=== PATIENT | male | born 1990 | race Caucasian/White ===

== ENCOUNTER 2021-04-01 17:22 | Emergency (ER) | payer OTHER, SELFPAY ==
--- NOTE | ~2021-04-01 | XR_ITS ---
EXAMINATION: XR HAND, LEFT CLINICAL INFORMATION: Laceration COMPARISON: None TECHNIQUE: PA, lateral, and oblique views of the left hand. FINDINGS: The bones are normal. No fracture. Alignment is anatomic. Joint spaces are maintained. No erosions or soft tissue calcifications. No radiopaque foreign body identified. Mild soft tissue swelling adjacent to this (metacarpal. XR/XR hand LT min 3V IMPRESSION: Mild soft tissue swelling adjacent to the fifth metacarpal.
[2021-04-01 19:31] VITALS: BP 142/73; PULSE 100; RESP 15; TEMP 37; O2SAT 100; BMI 25.0
[2021-04-01] MEDS: Diphth,Pertus(ACell),Tet Adult 0.5 ML SYRINGE IM (19:44)
[2021-04-01] MEDS: Lidocaine HCl 2 % 20 ML VIAL 10 ML SUBCUT (19:45)
--- NOTE | 2021-04-01 19:48 | ED.WOUNDLAC ---
HPI - Wound/Laceration General Chief Complaint: Wound/Laceration Stated Complaint: Hand lac Time Seen by Provider: 04/01/21 18:27 Source: patient Mode of arrival: ambulatory Limitations: no limitations History of Present Illness HPI narrative: 30-year-old male presenting to the ED with complaints of a laceration to his left hand from a razor blade prior to arrival. He reports he was at work although does not want to do a workman's comp injury complaint. He reports he used soap and water to clean the wound prior to arrival. He reports that he is not up-to-date on tetanus. He denies any thoughts of foreign bodies or any other symptoms complaints or concerns or injuries at this time. Onset (ago): minute(s) (Prior to arrival) Extremity Location: left: hand Place: work Patient tetanus UTD: No Context: accidental Associated symptoms: none Treatments prior to arrival: splint Related Data Previous Rx's Medication Instructions Recorded cephalexin 500 mg capsule 500 mg PO Q6H 10 Days #40 cap 04/01/21 Allergies Allergy/AdvReac Type Severity Reaction Status Date / Time pollen extracts [POLLEN] Allergy Unknown UNKNOWN Verified 04/01/21 19:53 Review of Systems Review of Systems: Constitutional : No Fever, No Chills, Cardiovascular : No Chest Pain, No SOB Respiratory : No Dyspnea Gastrointestinal : No abdominal pain Musculoskeletal : No Joint Swelling Skin : positive skin laceration, No Foreign bodies, No rash, No surrounding erythema Neuro : No Weakness, No Numbness/tingling Psych : No SI/HI/thoughts of self injury Yes all other systems are reviewed and are negative PMFSH Past Medical History Attestation statement: The following information was validated with the patient. Medical History No known health problems Surgical History No history of previous surgery Social History Social History Patient Tobacco Use Status: Never used Tobacco Use of substances other than those prescribed or required for medical reasons: Yes Substance Use Type: Marijuana Advance Directives: No Advance Directives Information Provided: Yes Physical Exam Vital Signs: Vital Signs: Last Vital Signs Temp 98.6 F 04/01/21 19:31 Pulse 100 04/01/21 19:31 Resp 15 04/01/21 19:31 BP 142/73 H 04/01/21 19:31 Pulse Ox 100 04/01/21 19:31 Body Mass Index 25.0 vital signs have been reviewed as normal and appeared to be correct. Blood pressure hypertensive at 142/73. Heart rate normal. Respiration rate normal. Temperature normal. Oxygen saturation normal. Appearance: Alert. Oriented X3. No acute distress. Head: Normal external exam. Normocephalic. Atraumatic. Eyes: PERRLA. EOMI. Conjunctiva and sclera normal. Eyelids normal. ENT: Pharynx normal. Uvula midline. Moist mucous membranes. Neck: Normal inspection. Neck supple. FROM. CVS: Normal heart rate and rhythm. Respiratory: No respiratory distress. Painless inspiration. Skin: Skin warm and dry. Normal skin color. Normal skin turgor. No additional rashes/lesions/lacerations noted. Extremities: To left hand palmar aspect patient noted to have of 2 cm intermediate laceration. No foreign bodies noted. No obvious ligamentous or tendon injury. No bony tenderness is noted. Otherwise all other Extremities exhibit normal range of motion and nontender. Neuro: Oriented X 3. No motor deficit. No sensory deficit. Reflexes normal. Normal steady gait. No focal neuro deficits noted. Vascular: + radial pulses/+ 2 distal pedal pulses/+2 dorsalis pedis b/l. Normal cap refill. No cyanosis noted to upper extremity nails and lower extremity toes nails. Course Course Course Narrative: Patient is now status post laceration repair with [address] Patient tolerated procedure well. No complications. Tetanus updated at this time. X-ray revealed mild soft tissue swelling otherwise no acute processes are noted. Will DC home with instructions return in 10 days for suture removal and to return if any new or worsening symptoms sooner and to follow up with primary care provider. Patient understands agrees with this plan. MDM - Wound/Laceration Medical Records Attestation: I reviewed the patient's medical records. Imaging Data Left hand x-ray: Attestation: I personally reviewed and interpreted this imaging study as follows: Radiologist's impression: FINDINGS: The bones are normal. No fracture. Alignment is anatomic. Joint spaces are maintained. No erosions or soft tissue calcifications. No radiopaque foreign body identified. Mild soft tissue swelling adjacent to this (metacarpal. XR/XR hand LT min 3V IMPRESSION: Mild soft tissue swelling adjacent to the fifth metacarpal. Procedures Laceration Laceration 1: Site: hand Side (If applicable): left Size (cm): 2 Description: linear Depth: simple, single layer Local Anesthetic: lidocaine 2% Amount of anesthesia used (mL): 5 Pre-repair: wound explored, irrigated extensively and deep structures intact Skin layer closed with: nylon Size (cm): 5-0 Number of sutures: 5 Technique: simple, interrupted Discharge Plan Discharge Clinical Impression: Laceration Patient Disposition: Home, Self-Care Instructions: Laceration (ED) Prescriptions: New cephalexin 500 mg capsule 500 mg PO Q6H 10 Days Qty: 40 RF: 0 Referrals: Emelyn Reeves PA [Emergency Midlevel Provider] - 10 days (For suture removal) Print Language: Divehi
== END 2021-04-01 19:58 | disposition home or self-care (01) ==
PROVIDERS: Emergency Provider Emergency Medicine
DX: S61.412A Laceration without foreign body of left hand, initial encounter (principal); S60.512A Abrasion of left hand, initial encounter; M79.642 Pain in left hand; W26.8XXA Contact with other sharp object(s), not elsewhere classified, initial encounter; Y93.9 Activity, unspecified; Y92.9 Unspecified place or not applicable; Y99.9 Unspecified external cause status
CPT/HCPCS: 12001; 73130; 90471; 90715; 99284

== ENCOUNTER 2025-03-10 08:32 | Emergency (ER) | payer OTHER, SELFPAY ==
--- NOTE | ~2025-03-10 | XR_ITS ---
EXAMINATION: XR RIBS, RIGHT CLINICAL INFORMATION: pain COMPARISON: None available. TECHNIQUE: PA view of the chest, and 3 views of the right ribs were obtained. FINDINGS: Lungs are clear. No consolidation, pneumothorax, or pleural effusion. The cardiomediastinal silhouette and pulmonary vasculature are normal. Osseous structures are unremarkable. Ribs are intact. No fractures are identified. XR/XR ribs RT min 3V w CXR1V IMPRESSION: Normal examination. No active pulmonary disease. No definite rib fracture or focal rib abnormality. Electronically signed by: Abran Navarro MD 03/10/2025 09:17 AM EDT
[2025-03-10 08:33] VITALS: BP 146/68; PULSE 69; RESP 18; TEMP 36.6; O2SAT 98; BMI 25.8
--- NOTE | 2025-03-10 08:47 | ED.BACK ---
HPI - Back Pain/Injury General Chief Complaint: Back Pain/Injury Stated Complaint: Sharp pain R side/back Time Seen by Provider: 03/10/25 08:46 Source: patient and old records reviewed Mode of arrival: ambulatory Limitations: no limitations History of Present Illness ED Provider: LETI TERRY Narrative: 34 yo male with no PMH does have some mass that is benign R side ribs from MRI in past with [facility]. He was doing heavy lifting at work yesterday and felt a little tight but nothing severe. He notes this AM he has much more severe pain on the right rib area that brought him to his knees. No fevers, cough, no recent travel or procedures. No rash noted. No hx of renal colic and no hx of VTE. He denies numbness, weakness, saddle anesthesia, incontinence, no IVDA. MD elicited complaint: back pain and back injury Pertinent past history: prior back pain Onset (ago): day(s) (1) Timing: progressively worsening Severity: severe Similar Symptoms Previously: No Quality: sharp Location: right upper back Radiation: none Exacerbating factors: movement Relieving factors: none Context: while lifting Associated symptoms: denies other symptoms Work related injury: Yes Related Data Previous Rx's ?Medication ?Instructions ?Recorded cephalexin 500 mg capsule 500 mg PO Q6H 10 days #40 caps 04/01/21 cyclobenzaprine 10 mg tablet 10 mg PO TID PRN muscle spasm #20 03/10/25 tabs ketorolac 10 mg tablet 10 mg PO TID PRN pain 5 days #15 03/10/25 tabs Allergies Allergy/AdvReac Type Severity Reaction Status Date / Time pollen extracts (POLLEN) Allergy Unknown UNKNOWN Verified 03/10/25 08:37 Review of Systems Review of Systems: Constitutional : No Weight loss, No Fever, No Chills, ENT/Mouth : No Hearing loss, No Ear Pain, No Nasal Congestion, No Sinus Pain, No Hoarseness, No sore throat, No Rhinorrhea, No Swallowing Difficulty Cardiovascular : No Chest Pain, No SOB Respiratory : No Cough, No Dyspnea Gastrointestinal : No Nausea, No Vomiting, No Diarrhea, No abdominal Pain, No Hematochezia, No Melena Genitourinary : No Dysuria, No Urinary Frequency, No Hematuria, No Urinary Incontinence, Musculoskeletal : positive back pain Skin : No Skin Lesions, No rash Neuro : No Weakness, No Numbness, No Paresthesias, no loss of bowel or bladder incontinence, no saddle anesthesia Yes all other systems are reviewed and are negative [facility] Past Medical History Attestation statement: The following information was validated with the patient. Source: old records reviewed Medical History No known health problems Surgical History No history of previous surgery Social History Social History Patient Tobacco Use Status: Never used Tobacco Substance Use Type: Marijuana Advance Directives: No Advance Directives Information Provided: No Do you have a plan to hurt others: No Plan Physical Exam Vital Signs: Vital Signs: Last Vital Signs Temp 98 F 03/10/25 08:33 Pulse 69 03/10/25 08:33 Resp 18 03/10/25 08:33 BP 146/68 H 03/10/25 08:33 Pulse Ox 98 03/10/25 08:33 O2 Del Method Room Air 03/10/25 08:33 BMI result Body Mass Index 25.8 Appearance: Alert. Oriented X3. No acute distress. Eyes: Pupils equal, round and reactive to light. ENT: Pharynx normal. Neck: Normal inspection. Neck supple. CVS: Normal heart rate and rhythm. Pulses normal. Respiratory: No respiratory distress. Breath sounds normal. Abdomen: Soft and nontender. Back: mild ttp R posterior ribs and thoracic area Skin: Skin warm and dry. Normal skin color. Normal skin turgor. Extremities: No lower extremity edema. distal pulses in both legs intact Neuro: Oriented X 3. No motor deficit. No sensory deficit. CN2-12 intact Medications Administered Discontinued Medications Generic Name Dose Route Start Last Admin Trade Name Freq PRN Reason Stop Dose Admin Diazepam 5 mg 03/10/25 08:57 03/10/25 09:20 Diazepam 5 Mg Tablet PO 03/10/25 08:58 5 mg ONCE ONE Administration Ketorolac Tromethamine 30 mg 03/10/25 08:57 03/10/25 09:19 Ketorolac Tromethamine 30 Mg/Ml Vial IM 03/10/25 08:58 30 mg ONCE ONE Administration Medical Decision Making Medical Decision Making MDM Narrative: 34 yo male with prior back pain here with R sided thoracic pain but no infectious symptoms, PERC negative, no hx of renal colic - it is worse with movements at this time will obtain xray for PTX/rib fracture, UA for hematuria for possible renal colic. Will provide IM toradol and valium. Differential Diagnosis Differential Diagnoses: The differential diagnosis associated with the presentation includes renal colic, muscle spasm, rib contusion, rib fx PERC negative doubt VTE Admission/Observation Consideration of admission/observation: Escalation of care including admission/observation considered feels better stable for DC Lab Data MDM Lab Attestation statement: I reviewed the patient's lab results. Labs: Lab Results 03/10/25 Range/Units 09:57 Urine Color Yellow Urine Appearance Clear Urine pH 5.5 (5.0-9.0) Ur Specific [place] 1.020 (1.005-1.025) Urine Protein Negative (Neg-Trace) mg/dL Urine Glucose (UA) Negative (Negative) mg/dL Urine Ketones Negative (Negative) mg/dL Urine Blood Negative (Negative) Urine Nitrite Negative (Negative) Ur Leukocyte Esterase Negative (Negative) Independent Interpretation I performed an independent interpretation of an: Plain X-Ray (no fx) Radiology Impression Discussion of test interpretation with radiology: I have reviewed the radiologist's reading. External Record Review External record reviewed: Outpatient record Prescription Management I considered prescription management with: Pain Medication and Other Discharge Plan Discharge Clinical Impression: Thoracic back pain Qualifiers: Chronicity: acute Back pain laterality: right Qualified Code(s): M54.6 - Pain in thoracic spine Patient Disposition: Home, Self-Care Instructions: Thoracic Pain (ED) Additional Instructions: xray of ribs and lungs are normal urine shows no blood in it return for fevers, rash, abdominal pain, numbness, weakness, change in urine or any other concerns. do not drink or drive with muscle relaxer Prescriptions: New cyclobenzaprine 10 mg tablet 10 mg PO TID PRN (Reason: muscle spasm) Qty: 20 0RF ketorolac 10 mg tablet 10 mg PO TID PRN (Reason: pain) 5 Days Qty: 15 0RF Rx Instructions: given IV toradol in department No Action cephalexin 500 mg capsule 500 mg PO Q6H 10 Days Qty: 40 0RF Stand Alone Forms: Work/School Release Print Language: Cambodian
[2025-03-10 10:29] VITALS: BP 146/68; PULSE 69; RESP 18; TEMP 36.6; O2SAT 98
== END 2025-03-10 10:30 | disposition home or self-care (01) ==
PROVIDERS: Emergency Provider Emergency Medicine
DX: M54.50 Low back pain, unspecified (principal); M54.6 Pain in thoracic spine; R07.81 Pleurodynia
CPT/HCPCS: 71101; 81003; 96372; 99284; J1885

== ENCOUNTER → 2025-03-10 08:41 | Outpatient (BNV) | payer OTHER, SELFPAY | PROVIDERS: Emergency Provider Emergency Medicine; Visit Provider Radiology Diagnostic Radiology | DX: R07.89 Other chest pain (principal) | CPT/HCPCS: 71101 ==